=== PATIENT | female | born 1980 | race Caucasian/White ===

== ENCOUNTER 2021-02-02 16:49 | Emergency (ER) | payer OTHER ==
[2021-02-02] MEDS ORDERED: ASPIRIN 325 MG TAB PO ONE (16:57)
--- NOTE | 2021-02-02 17:37 | XRay Report ---
CHEST 2 VIEWS INDICATION / CLINICAL INFORMATION: chest pain. COMPARISON: None available. FINDINGS: SUPPORT DEVICES: None. HEART / MEDIASTINUM: No significant abnormality. LUNGS / PLEURA: No significant pulmonary or pleural abnormality. No pneumothorax. ADDITIONAL FINDINGS: No significant additional findings. IMPRESSION: 1. No acute findings. Signer Name: Santos Walker MD Signed: 02/02/2021 5:32 PM Workstation Name: [id number]
[2021-02-02 19:00] LABS: Basophils # (Auto) 0.1 K/mm3 (0.0-0.1); Basophils % (Auto) 0.8 % (0.0-1.8); Eosinophils # (Auto) 0.2 K/mm3 (0.0-0.4); Eosinophils % (Auto) 2.2 % (0.0-4.3); Hematocrit 39.7 % (30.3-42.9); Lymphocytes # (Auto) 2.5 K/mm3 (1.2-5.4); Lymphocytes % (Auto) 27.1 % (13.4-35.0); Mean Corpuscular HGB Conc 33 % (30-34); Mean Corpuscular Volume 78 fl (79-97); Monocytes # (Auto) 0.4 K/mm3 (0.0-0.8); Monocytes % (Auto) 4.7 % (0.0-7.3); Platelet Count 445 K/mm3 (140-440); Red Blood Count 5.08 M/mm3 (3.65-5.03); Red Cell Distribution Width 18.1 % (13.2-15.2)
[2021-02-02 19:14] LABS: Alanine Aminotransferase 16 units/L (7-56); Albumin 4.2 g/dL (3.9-5); BUN/Creatinine Ratio 12; Blood Urea Nitrogen 13 mg/dL (7-17); Calcium 10.3 mg/dL (8.4-10.2); Hemolysis Index 6
[2021-02-03] MEDS ORDERED: SODIUM CHLORIDE 0.9% 1000 ML 1,000 ML IV ONE (00:38)
--- NOTE | 2021-02-03 00:48 | Emergency Department Report ---
ED Chest Pain HPI - General Chief Complaint: High BP Stated Complaint: CP/HIGH BLOOD PRESSURE PUI?: No Source: patient Mode of arrival: Ambulatory Limitations: No Limitations - History of Present Illness Initial Comments: 40-year-old female with history of hypertension presents complaining of mid substernal chest pain which started last night. She states that when it started it was mild. When she woke up early in the morning on 02/02/2021 the pain was much worse. She said that it was radiating to her back and worse when taking a breath. She says it also slightly radiated to her left shoulder. When the pain was most severe she felt slightly nauseated but did not vomit. She also has been having epigastric abdominal pain which has been intermittent as well. The patient states that she measured her blood pressure and it was elevated in the 150s/100s systolic. The patient does say she has been under a lot of stress lately because her father has cancer and needed to go to the doctor today for complication. She is fully vaccinated against COVID-19. She denies experiencing any fever/chills, body aches, headache, vision change, shortness of breath, cough, vomiting, diarrhea, constipation, dysuria, hematuria, vaginal discharge, focal weakness, sensory changes, easy bruising, or any other complaints. The patient states her chest pain has been constant since she woke up but it has become much more mild at this point. She rates it as a 4 out of 10 in severity. Her LMP was approximately 1 month ago but she says she has had a bilateral tubal ligation. - Related Data Allergies Allergy/AdvReac Type Severity Reaction Status Date / Time No Known Allergies Allergy Verified 02/02/21 16:56 Heart Score - HEART Score History: Moderately suspicious EKG: Normal Age: < 45 Risk factors: 1-2 risk factors Troponin: < normal limit HEART Score: 2 - EKG Read Time Time EKG Completed: 17:09 EKG Read Time: 17:40 ED Review of Systems ROS: Stated complaint: CP/HIGH BLOOD PRESSURE Other details as noted in HPI Constitutional: denies: chills, fever Eyes: denies: eye pain, vision change ENT: denies: throat pain, congestion Respiratory: denies: cough, shortness of breath Cardiovascular: chest pain, other (pleurisy). denies: palpitations Gastrointestinal: abdominal pain. denies: vomiting, diarrhea, constipation Genitourinary: denies: dysuria, frequency, hematuria, discharge Musculoskeletal: back pain. denies: joint swelling Skin: denies: rash, lesions Neurological: denies: headache, weakness, numbness, paresthesias, confusion Psychiatric: denies: anxiety, depression ED Past Medical Hx - Past Medical History Hx Hypertension: Yes - Surgical History Additional Surgical History: x2 - Social History Smoking Status: Never Smoker ED Physical Exam - Other Other exam information: GENERAL: Well developed and well nourished. No acute distress HEAD: Normocephalic. No obvious signs of trauma. ENT: Slightly dry mucous membranes. EYES: Extraocular movements are intact. Pupils are equal round and reactive to light bilaterally NECK: Supple. Full ROM is intact. Trachea is midline. LUNGS: Nonlabored breathing. Equal chest rise bilaterally. Clear to auscultation bilaterally. CARDIOVASCULAR: Tachycardic in the 100s-110s but with regular rhythm. No murmurs or rubs. VASCULAR: Cap refill < 2 seconds. 2+ peripheral pulses ABDOMEN: Abdomen is soft and nondistended. There is epigastric tenderness but no tenderness of the right upper quadrant, left upper quadrant, or bilateral lower quadrants. There is no guarding or rebound tenderness. SKIN: Skin is warm and dry NEURO: Patient is awake, alert, and oriented. 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 No focal deficits. Normal motor and sensory exam throughout. Normal speech. MUSCULOSKELETAL: No obvious deformities. No significant tenderness. Normal ROM throughout. BACK/SPINE: No midline tenderness or step-offs of the C/T/L spine. No costovertebral angle tenderness. ED Course Vital Signs 02/02/21 02/03/21 16:52 04:07 Temperature 98.8 F 99.1 F Pulse Rate 123 H 105 H Respiratory 20 18 Rate Blood Pressure 168/99 148/84 [Left] O2 Sat by Pulse 100 98 Oximetry GIBSON score - Gibson Score Age > 65: (0) No Aspirin use within the Past 7 Days: (0) No 3 or more CAD Risk Factors: (0) No 2 or more Angina events in past 24 hrs: (1) Yes Known CAD with more than 50% Stenosis: (0) No Elevated Cardiac Markers: (0) No ST Deviation Greater than 0.5mm: (0) No GIBSON Score: 1 ED Medical Decision Making - Lab Data Result diagrams: 02/02/21 18:32 02/02/21 18:32 Lab Results 02/02/21 02/02/21 02/02/21 Range/Units 18:32 18:32 21:10 WBC 9.4 (4.5-11.0) K/mm3 RBC 5.08 H (3.65-5.03) M/mm3 Hgb 13.0 (10.1-14.3) gm/dl Hct 39.7 (30.3-42.9) % MCV 78 L (79-97) fl MCH 26 L (28-32) pg MCHC 33 (30-34) % RDW 18.1 H (13.2-15.2) % Plt Count 445 H (140-440) K/mm3 Lymph % (Auto) 27.1 (13.4-35.0) % Morgan % (Auto) 4.7 (0.0-7.3) % Eos % (Auto) 2.2 (0.0-4.3) % Baso % (Auto) 0.8 (0.0-1.8) % Lymph # (Auto) 2.5 (1.2-5.4) K/mm3 Morgan # (Auto) 0.4 (0.0-0.8) K/mm3 Eos # (Auto) 0.2 (0.0-0.4) K/mm3 Baso # (Auto) 0.1 (0.0-0.1) K/mm3 Seg Neutrophils % 65.2 (40.0-70.0) % Seg Neutrophils # 6.1 (1.8-7.7) K/mm3 Sodium 136 L (137-145) mmol/L Potassium 4.2 (3.6-5.0) mmol/L Chloride 96.2 L (98-107) mmol/L Carbon Dioxide 27 (22-30) mmol/L Anion Gap 17 mmol/L BUN 13 (7-17) mg/dL Creatinine 1.1 (0.6-1.2) mg/dL Estimated GFR 55 ml/min BUN/Creatinine Ratio 12 % Glucose 140 H (65-100) mg/dL Calcium 10.3 H (8.4-10.2) mg/dL Total Bilirubin < 0.20 (0.1-1.2) mg/dL AST 18 (5-40) units/L ALT 16 (7-56) units/L Alkaline Phosphatase 148 H (35-129) units/L Troponin T < 0.010 < 0.010 (0.00-0.029) ng/mL Total Protein 8.7 H (6.3-8.2) g/dL Albumin 4.2 (3.9-5) g/dL Albumin/Globulin Ratio 0.9 % Lipase (13-60) units/L TSH (0.270-4.200) mlU/mL 02/03/21 02/03/21 02/03/21 Range/Units 00:09 00:09 00:09 WBC (4.5-11.0) K/mm3 RBC (3.65-5.03) M/mm3 Hgb (10.1-14.3) gm/dl Hct (30.3-42.9) % MCV (79-97) fl MCH (28-32) pg MCHC (30-34) % RDW (13.2-15.2) % Plt Count (140-440) K/mm3 Lymph % (Auto) (13.4-35.0) % Morgan % (Auto) (0.0-7.3) % Eos % (Auto) (0.0-4.3) % Baso % (Auto) (0.0-1.8) % Lymph # (Auto) (1.2-5.4) K/mm3 Morgan # (Auto) (0.0-0.8) K/mm3 Eos # (Auto) (0.0-0.4) K/mm3 Baso # (Auto) (0.0-0.1) K/mm3 Seg Neutrophils % (40.0-70.0) % Seg Neutrophils # (1.8-7.7) K/mm3 Sodium (137-145) mmol/L Potassium (3.6-5.0) mmol/L Chloride (98-107) mmol/L Carbon Dioxide (22-30) mmol/L Anion Gap mmol/L BUN (7-17) mg/dL Creatinine (0.6-1.2) mg/dL Estimated GFR ml/min BUN/Creatinine Ratio % Glucose (65-100) mg/dL Calcium (8.4-10.2) mg/dL Total Bilirubin (0.1-1.2) mg/dL AST (5-40) units/L ALT (7-56) units/L Alkaline Phosphatase (35-129) units/L Troponin T < 0.010 (0.00-0.029) ng/mL Total Protein (6.3-8.2) g/dL Albumin (3.9-5) g/dL Albumin/Globulin Ratio % Lipase 34 (13-60) units/L TSH 1.930 (0.270-4.200) mlU/mL - EKG Data -: EKG Interpreted by Ks - EKG Data 02/03/21 00:46 Sinus tachycardia. Normal axis. Normal intervals. No ectopy. No significant ST segment or T wave abnormalities. - Radiology Data CHEST 2 VIEWS INDICATION / CLINICAL INFORMATION: chest pain. COMPARISON: None available. FINDINGS: SUPPORT DEVICES: None. HEART / MEDIASTINUM: No significant abnormality. LUNGS / PLEURA: No significant pulmonary or pleural abnormality. No pneumothorax. ADDITIONAL FINDINGS: No significant additional findings. IMPRESSION: 1. No acute findings. Signer Name: Santos Walker MD Signed: 02/02/2021 4:32 PM Workstation Name: [email or web address] CTA CHEST WITH CONTRAST INDICATION / CLINICAL INFORMATION: Substernal chest pain that radiates, PE vs. Aortic Dissection. TECHNIQUE: Axial CT images were obtained through the chest after injection of Omnipaque 350, 100 cc IV contrast. 3 plane MIP and/or 3D reconstructions were produced. All CT scans at this location are performed using CT dose reduction for ALARA by means of automated exposure control. COMPARISON: None available. FINDINGS: PULMONARY ARTERIES: No pulmonary emboli. THORACIC AORTA: No significant abnormality. HEART: No significant abnormality. CORONARY ARTERY CALCIFICATION: None. MEDIASTINUM / KAREEM: No significant abnormality. PLEURA: No pleural effusion. No pneumothorax. LUNGS: No acute air space or interstitial disease. ADDITIONAL FINDINGS: None. SKELETAL STRUCTURES: No significant osseous abnormality. IMPRESSION: 1. No CT evidence for pulmonary embolus or dissection. 2. No pneumonia. CT ABDOMEN AND PELVIS WITH CONTRAST INDICATION / CLINICAL INFORMATION: Sub sternal chest pain that radiates, PE vs. Aortic Dissection. TECHNIQUE: Axial CT images were obtained through the abdomen and pelvis after Omnipaque 350, 100 cc IV contrast. All CT scans at this location are performed using CT dose reduction for ALARA by means of automated exposure control. COMPARISON: None available. FINDINGS: LIVER: No significant abnormality. GALLBLADDER: No significant abnormality. BILE DUCTS: No significant abnormality. PANCREAS: No significant abnormality. SPLEEN: No significant abnormality. ADRENALS: No significant abnormality. RIGHT KIDNEY / URETER: No significant abnormality. LEFT KIDNEY / URETER: No significant abnormality. STOMACH / SMALL BOWEL: No significant abnormality. COLON: No significant abnormality. APPENDIX: No significant abnormality. PERITONEUM: No free fluid. No free air. No fluid collection. LYMPH NODES: No significant adenopathy. VASCULAR STRUCTURES: No significant abnormality. URINARY BLADDER: No significant abnormality. REPRODUCTIVE ORGANS: No significant abnormality. ADDITIONAL FINDINGS: None. SKELETAL SYSTEM: No significant abnormality. IMPRESSION: No acute abnormality. Signer Name: Reuben Michele MD Signed: 02/03/2021 1:52 AM Workstation Name: [id number] - Medical Decision Making 40-year-old female with history of hypertension presents complaining of elevated blood pressure and chest pain which started approximately 24 hours ago. She reports that her mid substernal chest pain radiates to the back and is pleuritic in nature. She also has epigastric abdominal pain. On initial assessment, the patient is afebrile and with normal oxygen saturation. She is hypertensive with blood pressure in the 160s over 90s. She is tachycardic with heart rate of 123. On physical examination, the patient has slightly dry mucous membranes. She has epigastric tenderness without guarding or rebound. She has no mid spinal or CVA tenderness. She has a nonfocal neurologic exam. Labs were drawn in triage and reveal no significant leukocytosis or anemia. Kidney function is normal and there are no significant electrolyte abnormalities. Troponin has been negative x2. Chest x-ray reveals no acute abnormalities. The patient's heart score is 2. In addition, she does report that her chest pain is much improved. Nonetheless, given that the patient reports pain radiating to the back with elevated blood pressure as well as her persistent unexplained tachycardia and epigastric tenderness, I have ordered CTA of the chest/abdomen/pelvis to assess for evidence of aortic dissection, AAA, pulmonary embolism, colitis, infection, or any other significant intrathoracic or intra- abdominal abnormality. I have added on lipase and TSH. The patient will have a third troponin drawn. I have ordered 1 L of IV fluids. We will continue to monitor the patient closely. CTA of the chest/abdomen/pelvis reveals no acute abnormalities including no evidence of PE or dissection and no abnormalities of the abdomen/pelvis. On repeat assessment at 3:33 AM, the patient is resting comfortably in the chair. She reports that she now has no chest pain or abdominal pain that all of her symptoms have resolved. Her heart rate has improved to 105 despite not receiving the IV fluids that were ordered. Third troponin is negative. TSH is within normal limits. Given three troponins with low heart score, the patient is appropriate for discharge with cardiology follow-up. I offered the patient to wait until the nurse becomes available to insert an IV to give her IV fluids but the patient states she wants to go home and drink fluids herself. I discussed with her the fact that our work-up does not definitively exclude medical problems with her heart or lungs as the cause of her symptoms and that she needs to follow-up with a primary care doctor as well as cardiology. All of this was translated into Dominican by fluent Dominican speaker and and I made sure that the patient expressed understanding and agreement with the each element and the plan of care.. The only lab that had not been sent yet was urinalysis but when I spoke to the patient she denies any urinary symptoms whatsoever. I asked whether she wanted to wait for urinalysis and she said no. She will follow up with a primary care doctor. Referral will be faxed to the [facility]. The patient was given strict return precautions and told to drink plenty of fluids containing electrolytes such as Gatorade or Pedialyte. Critical care attestation.: If time is entered above; I have spent that time in minutes in the direct care of this critically ill patient, excluding procedure time. ED Disposition Clinical Impression: Chest pain, Hypertension, Dehydration, Epigastric pain Disposition: 01 HOME / SELF CARE / HOMELESS Is pt being admited?: No Condition: Stable Instructions: Nonspecific Chest Pain, Adult, Dehydration, Adult, [id number], Abdominal Pain, Adult, [id number], Rehydration, Adult, Pain Without a Known Cause, Hypertension, Adult, Hypertension (ED) Additional Instructions: Please drink plenty of fluids containing electrolytes such as Gatorade/Pedialyte. Return to the emergency department should you develop worse selma symptoms, new concerning symptoms, or for any other new health concerns. Please follow-up in 1 to 2 days with the primary care doctor. You should receive a call from the blower room attendant but if you do not hear from them in 48 to 72 hours please call the number provided. Referrals: LUDWIN DORAN MD [Staff Physician] - 2-3 Days BARBARA JARAMILLO MD [Staff Physician] - 3-5 Days Print Language: HUNGARIAN
--- NOTE | 2021-02-03 02:56 | Cat Scan Report ---
CTA CHEST WITH CONTRAST INDICATION / CLINICAL INFORMATION: Substernal chest pain that radiates, PE vs. Aortic Dissection. TECHNIQUE: Axial CT images were obtained through the chest after injection of Omnipaque 350, 100 cc I V contrast. 3 plane MIP and/or 3D reconstructions were produced. All CT scans at this location are pe rformed using CT dose reduction for ALARA by means of automated exposure control. COMPARISON: None available. FINDINGS: PULMONARY ARTERIES: No pulmonary emboli. THORACIC AORTA: No significant abnormality. HEART: No significant abnormality. CORONARY ARTERY CALCIFICATION: None. MEDIASTINUM / KAREEM: No significant abnormality. PLEURA: No pleural effusion. No pneumothorax. LUNGS: No acute air space or interstitial disease. ADDITIONAL FINDINGS: None. SKELETAL STRUCTURES: No significant osseous abnormality. IMPRESSION: 1. No CT evidence for pulmonary embolus or dissection. 2. No pneumonia. CT ABDOMEN AND PELVIS WITH CONTRAST INDICATION / CLINICAL INFORMATION: Substernal chest pain that radiates, PE vs. Aortic Dissection. TECHNIQUE: Axial CT images were obtained through the abdomen and pelvis after Omnipaque 350, 100 cc I V contrast. All CT scans at this location are performed using CT dose reduction for ALARA by means o f automated exposure control. COMPARISON: None available. FINDINGS: LIVER: No significant abnormality. GALLBLADDER: No significant abnormality. BILE DUCTS: No significant abnormality. PANCREAS: No significant abnormality. SPLEEN: No significant abnormality. ADRENALS: No significant abnormality. RIGHT KIDNEY / URETER: No significant abnormality. LEFT KIDNEY / URETER: No significant abnormality. STOMACH / SMALL BOWEL: No significant abnormality. COLON: No significant abnormality. APPENDIX: No significant abnormality. PERITONEUM: No free fluid. No free air. No fluid collection. LYMPH NODES: No significant adenopathy. VASCULAR STRUCTURES: No significant abnormality. URINARY BLADDER: No significant abnormality. REPRODUCTIVE ORGANS: No significant abnormality. ADDITIONAL FINDINGS: None. SKELETAL SYSTEM: No significant abnormality. IMPRESSION: No acute abnormality. Signer Name: Reuben Michele MD Signed: 02/03/2021 2:52 AM Workstation Name: [id number]
[2021-02-03 04:08] VITALS: BP 148/84
--- NOTE | 2021-02-03 09:49 | Electrocardiograph Report ---
Test Date: 2021-02-02 Test Time: 17:09:21 Pat Name: ILANA LOVELACE Department: Room: Gender: F Parasitologist: FER : 1980 Requested By: JODI AVENDANO Order Number: [id number] Reading MD: Nacho Goel Measurements Intervals [place] Rate: 108 P: 40 MN: 162 QRS: 43 QRSD: 76 T: 15 QT: 321 QTc: 430 Interpretive Statements Sinus tachycardia Probable left atrial enlargement No previous ECG available for comparison Electronically Signed On 02-03-2021 9:48:30 EDT by Nacho Goel
== END 2021-02-03 04:07 | disposition home or self-care (01) ==
LOC: ED 16:49
DX: E86.0 Dehydration (principal); R10.13 Epigastric pain; R07.9 Chest pain, unspecified; I10 Essential (primary) hypertension; Z98.890 Other specified postprocedural states
CPT/HCPCS: 36415; 71046; 71275; 74177; 80053; 83690; 84443; 84484; 85025; 93005; 99284; Q9967